=== PATIENT | male | born 1995 | race American Indian/Alaskan Native ===

== ENCOUNTER 2016-08-07 16:45 | Emergency (ER) | payer SELFPAY ==
[2016-08-07 17:04] VITALS: BP 129/67
[2016-08-07] MEDS ORDERED: DUONEB 0.5 MG-3 MG/3 ML SOLN IH ONE (20:01)
--- NOTE | 2016-08-07 21:04 | XRay Report ---
FINAL REPORT PROCEDURE: XR CHEST ROUTINE 2V TECHNIQUE: PA and lateral chest radiographs were obtained. CPT 19754 HISTORY: Shortness of breath. Chest congestion, wheezing, h/o asthma. COMPARISON: No prior studies are available for comparison. FINDINGS: Heart: Normal. Mediastinum/Vessels: Normal. Lungs/Pleural space: Lungs are clear with no edema or infiltrate or effusion. There is no plain film evidence of. Bony thorax: No acute osseous abnormality. Other: IMPRESSION: Negative PA lateral chest with no plain film evidence of acute finding.
--- NOTE | 2016-08-07 21:14 | Emergency Department Report ---
HPI - General Chief Complaint: Upper Respiratory Infection Time Seen by Provider: 08/07/16 19:46 - HPI HPI: 20-year-old male presents today with chest congestion and cough 4 days. Asked if her nausea today. Positive for history of asthma and states that he tried albuterol treatment with relief. Patient would like a refill of his medications. Denies any sick contacts. Tried flonase with nasal congestion relief. Denies fever, chills, vomiting, chest pain, abdominal pain, shortness of breath. ED Past Medical Hx - Past Medical History Hx Asthma: Yes - Social History Smoking Status: Current Some Day Smoker Substance Use Type: None - Medications Home Medications: Home Medications Medication Instructions Recorded Confirmed Last Taken Type ALBUTEROL Inhaler [ProAir HFA 2 puff IH QID PRN #1 inhalation 08/07/16 Unknown Rx Inhaler] Albuterol Sulfate [Albuterol 0.63% 0.63 mg IH TID PRN #30 ml 08/07/16 Unknown Rx NEBS] Azithromycin [Zithromax Z-CHARU] 250 mg PO QDAY #6 tablet 08/07/16 Unknown Rx guaiFENesin/DEXTROMETHORPHAN 1 each PO Q12H #24 tab 08/07/16 Unknown Rx [Mucinex Dm ER 1,200-60 mg Tab] ED Review of Systems ROS: Stated complaint: FLU SYMPTOMS Other details as noted in HPI Constitutional: denies: chills, fever, malaise Eyes: denies: eye pain ENT: congestion. denies: ear pain, throat pain Respiratory: cough. denies: shortness of breath, wheezing Cardiovascular: denies: chest pain, palpitations Endocrine: no symptoms reported Gastrointestinal: denies: abdominal pain, nausea, vomiting Neurological: denies: headache, weakness Physical Exam - Physical Exam Vital Signs: Vital Signs 08/07/16 08/07/16 08/07/16 17:02 20:17 20:23 Temperature 97.7 F Pulse Rate 57 L Pulse Rate [ 63 65 Throughout] Respiratory 18 Rate Respiratory 20 20 Rate [ Throughout] Blood Pressure 129/67 O2 Sat by Pulse 99 Oximetry Physical Exam: GENERAL: The patient is well-developed and well-nourished. Patient is in NAD. HEAD: Normocephalic. Atraumatic. EYES: PERRL. EARS: External auditory canals and tympanic membranes clear; hearing grossly intact. NOSE: Normal nasal mucosa with no nasal discharge. No tenderness to palpation of frontal or maxillary sinuses. THROAT: No erythema, swelling or exudates. NECK: Supple, nontender, without lymphadenopathy. No meningitic signs are noted. CHEST/LUNGS: Positive for wheezing bilaterally. HEART/CARDIOVASCULAR: Regular rate and rhythm. No murmurs, rubs or gallops. ABDOMEN: Abdomen is soft, nontender. Bowel sounds normoactive. No guarding or rebound tenderness. EXTREMITIES: Peripheral pulses intact. Capillary refill less than 2 seconds. NEURO: Alert and oriented x 3. Normal gait. ED Course Vital Signs 08/07/16 08/07/16 08/07/16 17:02 20:17 20:23 Temperature 97.7 F Pulse Rate 57 L Pulse Rate [ 63 65 Throughout] Respiratory 18 Rate Respiratory 20 20 Rate [ Throughout] Blood Pressure 129/67 O2 Sat by Pulse 99 Oximetry - Reevaluation(s) Reevaluation #1: 08/07/16 21:15 Clear to auscultation post breathing treatment. ED Medical Decision Making - Lab Data Vital Signs 08/07/16 08/07/16 08/07/16 17:02 20:17 20:23 Temperature 97.7 F Pulse Rate 57 L Pulse Rate [ 63 65 Throughout] Respiratory 18 Rate Respiratory 20 20 Rate [ Throughout] Blood Pressure 129/67 O2 Sat by Pulse 99 Oximetry - Radiology Data Radiology results: report reviewed Chest x-ray: Negative PA, lateral chest with no plain film evidence of acute findings. - Medical Decision Making 20-year-old male presents today with chest congestion and cough 4 days. His x- rays reveals no acute findings. Patient reports some symptomatic relief post breathing treatment. Patient is in no acute distress at this time. He will be discharged home and is encouraged to follow up with a primary care provider. He will be sent home on azithromycin, albuterol neb treatments, albuterol inhaler and Mucinex DM and is encouraged to return to the emergency room for any worsening symptoms. Critical care attestation.: If time is entered above; I have spent that time in minutes in the direct care of this critically ill patient, excluding procedure time. ED Disposition Clinical Impression: URI (upper respiratory infection) Qualifiers: URI type: unspecified URI Qualified Code(s): J06.9 - Acute upper respiratory infection, unspecified Disposition: DISCHARGED TO HOME OR SELFCARE Is pt being admited?: No Does the pt Need Aspirin: No Condition: Stable Instructions: Upper Respiratory Infection (ED) Additional Instructions: Follow up with primary care provider. Return to the emergency department if symptoms worsen. Prescriptions: ALBUTEROL Inhaler [ProAir HFA Inhaler] 2 puff IH QID PRN #1 inhalation PRN Reason: Shortness Of Breath Albuterol Sulfate [Albuterol 0.63% NEBS] 0.63 mg IH TID PRN #30 ml PRN Reason: Wheezing Azithromycin [Zithromax Z-CHARU] 250 mg PO QDAY #6 tablet guaiFENesin/DEXTROMETHORPHAN [Mucinex Dm ER 1,200-60 mg Tab] 1 each PO Q12H #24 tab Referrals: PRIMARY CARE, [Primary Care Provider] - 3-5 Days [facility] [Outside] - 3-5 Days Forms: Work/School Release Form(ED) Time of Disposition: 21:14
== END 2016-08-07 21:27 | disposition home or self-care (01) ==
LOC: ED 16:45
DX: J06.9 Acute upper respiratory infection, unspecified (principal); J45.909 Unspecified asthma, uncomplicated; F17.200 Nicotine dependence, unspecified, uncomplicated
CPT/HCPCS: 71020; 94640; 99283